=== PATIENT | female | born 2000 | race Caucasian/White ===

== ENCOUNTER 2023-04-21 13:29 | Outpatient (AMB) | payer BC, OTHER, SELFPAY ==
--- NOTE | 2023-04-21 13:30 | MHC.OFFVIS ---
Intake Intake Visit Reasons: facial numbness, MRI Brain 12.13 correlation-Conf Intake Note: Patient presents for facial numbness. Allergies latex Allergy (Unknown, Verified 04/21/23 13:30) Unknown Medication List - Last Reconciled 04/21/23 by TAURUS Cooper ibuprofen 600 mg PO TID levonorgestrel-ethinyl estrad 0.1-20 mg-mcg (Sronyx) 1 tab PO DAILY HPI HPI Comments History of Present Illness Details 22-yr-old female presents for televideo visit via [employer]- for new pt evaluation h/o eye pain, headache, abnormal brain MRI, fatigue. Pt accompanied by her mother. PMH includes: exercise induced asthma, suspected ADHD, Concussion in July 2014 w/ residual migraine like headaches. Symptomatic EBV x's 2 months- dx in Oct 2014. Had an episode in Right hip where she had pain/limited ROM- in highschool. Pt reports she was in her usual good state of health, when in Oct 2022, Pt reports that she started having left adventist numbness. She initialy noticed while applying make-up. The numbness moved inch by inch down her face until the whole left side ( left eyebrow down to the left jaw and midline to left tongue/left gums) of her face was numb and tingling. At that time, there visible no facial weakness, diplopia. In the enxt few weeks, she developed eye pain w/ eye movement, states she would have to move her whole head to look at something.. Then she started having swollen and painful glands in bilateral neck and jaw, but very painful in the left axilla. By Nov 2022, she started also having severe headaches, occipital-cervical pain, fatigue, activity intolerance, muscle fatigue. Also abd bloating. At this point, she went to [facility] ER. CT soft tissue/neck showed minimal asymmetry and hyperemia of the left lingual tonsils which could represent tonsillitis . CBC/CMP and Lyme- WNL. She was tx'd w/ decadron, toradol, and zofran. The left lower facial numbness and tingling resolved within 24 hours of receiving the steroids- she states she could feel the numbness regressing in the opposite pattern that it had progressed. Brain MRI w/wo, 12/14/22 at [facility], showed nonspecific foci of increased T2 in epic and now a IR signal in the subcortical and deep white matter of bilateral cerebral hemispheres, but otherwise unremarkable. Patient states, that lab work-up was concerning for autoimmune disease. However, I do not have these results today. She has since seen [facility]- they thought her inflammatory system was imbalanced. Was advised to avoid gluten, dairy, sugar, which she has been doing for 5 weeks. She is feeling somewhat better. However, she continues to experience: Intermittent eye pain x's 2-3 days. Headache- bifrontal, supraorbital, retroorbital pain. This is exacerbated by certain EOM- looking down to the left. Pulsating pain. A/w photophonia, phonophobia (generally phonophobic), nausea, visible muscle fasciculations in calfs/legs, fatigue, activity intolerance. No dizziness, red eyes, watery eyes, runny nose, facial droop. In the last week- had 1 3day attack. Faigue- but less than before. Endorses mild motion sickness, heat intolerance- always. prone to sweating a lot. anxiety. involuntary smile- jaw feels clenched/tired- has done her entire life. Her feet easily fall asleep- especially quickly after crossing her legs. Denies vision changes. Denies h/o colic, usual headaches/migraine. Family hx: Mother- un-labeled autoimmune d/o (doing work-up for ? RA vs fibromyalgia), motion sickness, Brother- motion sickness. Paternal 1st aunt- lupus. [facility] Medical History (Updated 04/24/23 @ 17:05 by TAURUS Cooper) History of Marina-Schilling virus infection Family History (Updated 04/21/23 @ 13:33 by LINDA Mejias) Mother Hyperlipidemia Auto immune neutropenia Social History (Updated 04/21/23 @ 13:32 by LINDA Mejias) Alcohol intake: never Patient Tobacco Use Status: Never used Tobacco Use of substances other than those prescribed or required for medical reasons: Yes Substance Use Type: Marijuana Physical Exam Const General: cooperative, no acute distress and well developed Orientation/consciousness: patient oriented x3 Resp Effort & Inspection: normal respiratory effort and able to speak in complete sentences Neuro General: patient oriented x3 Cognition (Neuro): normal cognition Psych Appearance: grossly normal Mental Status: mental status grossly normal Affect: normal affect Attitude: cooperative Thought process: Normal thought process present Results Reviewed Results Reviewed: 11/21/22, CT Soft Tissue Neck W/ Contrast CT Soft Tissue Neck W/ Contrast INDICATION/CLINICAL QUESTION: Hx of Present Illness: facial numbness x 1 week, neck pain, jaw pain., L axillia and L arm pain- seen at [place] last week and symptoms getting worse. Vomiting started today at 4 am and subjective fever; Reason: Abscess Inflammation; Clinical Question(s): Abscess; Order Comment: / Abscess. TECHNIQUE: Spiral CT neck with IV contrast formatted in 3 planes. 100 cc of Omnipaque 300 was administered intravenously. Weight-based protocol using automatic tube modulation was used to optimize exposure parameters. CTDIvol Body: 8.30 mGy, DLP Body: 260 mGy*cm. COMPARISON: None FINDINGS: Radar Air Traffic Controller View Findings, Lines and Tubes: None. Intracranial structures: Visualized portions are unremarkable. Orbits: Visualized portions are unremarkable. Paranasal sinuses and mastoids: Visualized portions are clear. Mucosal surfaces: Minimal prominence of the left lingual tonsils with some hyperemia (image 28). Superficial and deep neck spaces: No mass, fluid collection, or inflammatory change. Cervical lymph nodes: Normal in size and morphology. Salivary glands: The parotid glands and submandibular glands are normal. Thyroid gland: Normal CT appearance Vascular structures: Unremarkable. Upper chest: The upper lungs are clear. The upper mediastinum is unremarkable. Bones and teeth: No acute abnormalities. IMPRESSION: No evidence of abscess. There is minimal asymmetry and hyperemia of the left lingual tonsils which could represent tonsillitis Assessment & Plan Assessment & Plan (1) Headache: Code(s): R51.9 - Headache, unspecified (2) Eye pain: Code(s): H57.10 - Ocular pain, unspecified eye (3) White matter abnormality on MRI of brain: Code(s): R90.82 - White matter disease, unspecified (4) Numbness and tingling of left side of face: Comment: Left V2-V3 numbness and tingling (from Oct -Nov 2022) resolved after decadron tx Code(s): R20.0 - Anesthesia of skin; R20.2 - Paresthesia of skin (5) Fatigue: Code(s): R53.83 - Other fatigue Plan Patient advised to undergo a follow-up brain MRI w/ orbits with and without contrast to assess status of inter cerebral white matter changes. Check labs for common etiologies of eye pain, headaches, fatigue. Patient advised to undergo visual evoked potential. Trial Sumatriptan 100mg tab, 1/2 - 1 tab (50-100mg) at onset of headache, may repeat in 2 hours. Max of 2 tabs (200mg) per 24 hours. May adjunct with OTC Tylenol 650mg q 4 hours, Ibuprofen 600mg q 6 hours, or Naproxen 440mg q 12 hrs prn. Case discussed with Dr. Hernandez. Follow-up in 2 months or sooner as needed. Orders: Orders Complete Blood Count Auto Diff 04/21/23 H57.10 - Ocular pain, unspecified eye, R20.0 - Anesthesia of skin, R20.2 - Paresthesia of skin, R51.9 - Headache, unspecified, R90.82 - White matter disease, unspecified Comprehensive Met. Panel 04/21/23 H57.10 - Ocular pain, unspecified eye, R20.0 - Anesthesia of skin, R20.2 - Paresthesia of skin, R51.9 - Headache, unspecified, R90.82 - White matter disease, unspecified [place] Reflex Titer and Pattern 04/21/23 H57.10 - Ocular pain, unspecified eye, R20.0 - Anesthesia of skin, R20.2 - Paresthesia of skin, R51.9 - Headache, unspecified, R90.82 - White matter disease, unspecified Vitamin B12 and Folate 04/21/23 H57.10 - Ocular pain, unspecified eye, R20.0 - Anesthesia of skin, R20.2 - Paresthesia of skin, R51.9 - Headache, unspecified, R90.82 - White matter disease, unspecified Hemoglobin A1c 04/21/23 H57.10 - Ocular pain, unspecified eye, R20.0 - Anesthesia of skin, R20.2 - Paresthesia of skin, R51.9 - Headache, unspecified, R90.82 - White matter disease, unspecified CRP High Sensitivity 04/21/23 H57.10 - Ocular pain, unspecified eye, R20.0 - Anesthesia of skin, R20.2 - Paresthesia of skin, R51.9 - Headache, unspecified, R90.82 - White matter disease, unspecified Lyme IgG/IgM w/reflex to WB 04/21/23 H57.10 - Ocular pain, unspecified eye, R20.0 - Anesthesia of skin, R20.2 - Paresthesia of skin, R51.9 - Headache, unspecified, R90.82 - White matter disease, unspecified EEG electroencephalogram Today H57.10 - Ocular pain, unspecified eye, R20.0 - Anesthesia of skin, R20.2 - Paresthesia of skin, R51.9 - Headache, unspecified, R90.82 - White matter disease, unspecified Rheumatoid Factor 04/21/23 H57.10 - Ocular pain, unspecified eye, R20.0 - Anesthesia of skin, R20.2 - Paresthesia of skin, R51.9 - Headache, unspecified, R90.82 - White matter disease, unspecified TSH reflex Free T4 04/21/23 H57.10 - Ocular pain, unspecified eye, R20.0 - Anesthesia of skin, R20.2 - Paresthesia of skin, R51.9 - Headache, unspecified, R90.82 - White matter disease, unspecified Erythrocyte Sedimentation Rate 04/21/23 H57.10 - Ocular pain, unspecified eye, R20.0 - Anesthesia of skin, R20.2 - Paresthesia of skin, R51.9 - Headache, unspecified, R90.82 - White matter disease, unspecified [place] [facility] [place] H57.10 - Ocular pain, unspecified eye, R20.0 - Anesthesia of skin, R20.2 - Paresthesia of skin, R51.9 - Headache, unspecified, R90.82 - White matter disease, unspecified Vitamin D 25-OH (D2 and D3) 04/21/23 R20.0 - Anesthesia of skin, R20.2 - Paresthesia of skin, R51.9 - Headache, unspecified, R53.83 - Other fatigue MR head/brain wo/w con Today H57.10 - Ocular pain, unspecified eye, R51.9 - Headache, unspecified, R90.82 - White matter disease, unspecified Medications: New sumatriptan succinate (0.5 - 1 x 100 mg) 50 - 100 mg orally at onset of headache, may repeat in 2 hrs PRN; max 2 tabs per day or 4 tabs/week (may take with Ibuprofen) 30 days 12 tabs 6RF migraine headache Telehealth Telehealth Location of provider rendering services: practice address Location of patient: address on file Patient Identification confirmed using: Name, : Yes Telehealth method: video Patient verbally consented to treatment: Yes Patient verbally consented to billing insurance company: Yes Patient informed of any privacy concerns related to visit: Yes Minutes spent on Phone/Video with Pt.: 45 Coding Level of Care Code Tele [facility] Pt Level 4 (99566) Diagnoses Headache R51.9 Eye pain H57.10 White matter abnormality on MRI of brain R90.82 Numbness and tingling of left side of face R20.0; R20.2 Fatigue R53.83
== END 2023-04-21 14:30 | disposition home or self-care (01) ==
LOC: HO.HSMS 13:29
PROVIDERS: PCP Family Medicine; Referring Provider Physician Assistant; Visit Provider Nurse Practitioner Family
DX: R51.9 Headache, unspecified (principal); H57.10 Ocular pain, unspecified eye; R90.82 White matter disease, unspecified; R20.0 Anesthesia of skin; R20.2 Paresthesia of skin; R53.83 Other fatigue
CPT/HCPCS: 99204

== ENCOUNTER → 2023-04-21 13:29 | Outpatient (BNVA) | payer BC, OTHER, SELFPAY | PROVIDERS: PCP Family Medicine; Referring Provider Physician Assistant; Visit Provider Nurse Practitioner Family ==

== ENCOUNTER 2023-04-28 10:41 | Outpatient (REF) | payer BC, OTHER, SELFPAY ==
[2023-04-28 13:24] LABS: MANUAL DIFF FLAG NO
[2023-04-28 13:32] LABS: Basophils Percent Auto 0.5 % (0-2); Eosinophils Absolute Auto 0.1 X10*3/uL (0.0-0.4); Eosinophils Percent Auto 1.3 % (0-4); Hematocrit 40.4 % (37.0-47.0); Hemoglobin 13.5 g/dl (12.0-16.0); Imm Gran Abs Auto 0.01 X10*3/uL (0.00-0.03); Imm Gran Pct Auto 0.1 % (0.0-0.4); Lymphocytes Absolute Auto 2.6 X10*3/uL (1.2-4.9); Mean Corpuscular HGB Conc 33.4 g/dl (31.0-35.0); Mean Corpuscular Hemoglobin 29.3 pg (27.0-33.0); Mean Corpuscular Volume 87.6 fL (80.0-98.0); Mean Platelet Volume 9.9 fL (9.4-12.3); Monocytes Absolute Auto 0.4 X10*3/uL (0.1-1.2); Monocytes Percent Auto 5.1 % (2-11); Neutrophils Absolute Auto 4.5 x10*3/uL (2.0-8.3); Platelet Count 268 X10*3/uL (160-400); Red Blood Count 4.61 X10*6/uL (4.20-5.50); Red Cell Distribution Width 11.8 % (11.0-16.0); White Blood Count 7.7 X10*3/uL (4.8-10.8)
[2023-04-28 13:52] LABS: Estimated Average Glucose 97 mg/dL; Rheumatoid Factor < 13.0 IU/mL (<15.0)
[2023-04-28 14:06] LABS: Alanine Aminotransferase 16 U/L (0-31); Albumin Level 4.3 g/dL (3.5-5.0); Alkaline Phosphatase 40 U/L (39-117); Anion Gap 9 (12-20); Aspartate Amino Transferase 18 U/L (5-31); Bilirubin Total 0.5 mg/dL (0.0-1.0); Blood Urea Nitrogen 12 mg/dL (9-16); Calcium 9.2 mg/dL (8.4-10.2); Carbon Dioxide 25 mmol/L (22-29); Chloride 107 mmol/L (96-108); Estimated Glomerular Filt Rate > 60; Glucose Random 116 mg/dL (60-115); Potassium 3.9 mmol/L (3.3-5.1); Sodium 137 mmol/L (135-145); Total Protein 7.5 g/dL (6.5-8.0)
[2023-04-28 14:11] LABS: Erythrocyte Sedimentation Rate 5 MM/HR (0-20)
[2023-04-28 14:16] LABS: Folate 6.7 ng/mL (> or = 4.0); Vitamin B12 849 pg/mL (200-900)
[2023-04-28 14:22] LABS: TSH reflex Free T4 2.93 uIU/mL (0.32-4.0)
[2023-04-29 15:59] LABS: CRP High Sensitivity 0.3 mg/L
[2023-04-29 18:09] LABS: Lyme Abs Screen <0.90 index
[2023-05-03 10:08] LABS: Angiotensin Converting Enzyme 19.2 U/L (9-67)
[2023-05-03 15:24] LABS: ANA Titer 2 1:40 titer; Anti Nuclear Antibody Pattern Nuclear, Homogeneous; Anti Nuclear Antibody Screen POSITIVE (NEGATIVE)
[2023-05-03 15:47] LABS: Vitamin D 25-OH, D2 <4 ng/mL; Vitamin D 25-OH, D3 38 ng/mL; Vitamin D 25-OH, Total 38 ng/mL (30-100)
== END 2023-04-28 10:42 | disposition home or self-care (01) ==
LOC: HO.10HDL 10:41
PROVIDERS: Visit Provider Nurse Practitioner Family
DX: R51.9 Headache, unspecified (principal); H57.10 Ocular pain, unspecified eye; R90.82 White matter disease, unspecified; R20.0 Anesthesia of skin; R20.2 Paresthesia of skin; R53.83 Other fatigue
CPT/HCPCS: 36415; 80053; 82164; 82306; 82607; 82746; 83036; 84443; 85025; 85652; 86038; 86039; 86141; 86431; 86617; 86618

== ENCOUNTER 2023-05-27 15:14 | Outpatient (REF) | payer BC, OTHER, SELFPAY ==
--- NOTE | ~2023-05-27 | MR_ITS ---
EXAMINATION: MR BRAIN WITHOUT CONTRAST MR ORBITS WITHOUT AND WITH CONTRAST CLINICAL INFORMATION: Ocular pain. White matter changes. COMPARISON: Brain MRI from 12/13/2022. TECHNIQUE: MRI of the brain without intravenous contrast. MRI of the orbits was obtained using routine sequences without and following the administration of 7 mL of Gadavist intravenous contrast. FINDINGS: No focal restricted diffusion is demonstrated to suggest acute or subacute cerebral ischemia. No evidence of acute or chronic hemorrhagic products on heme-sensitive imaging. Redemonstrated scattered subcortical, deep white matter, periventricular, and cerebellar T2 FLAIR hyperintensities. There appear to be a few small regions of T2 FLAIR hyperintensity that are new compared to exam from 2022 and the left periatrial white matter, and anterior right frontal lobe. The ventricles are normal in morphology and size. No abnormal mass effect. No midline shift. Normal positioning of the cerebellar tonsils. No demonstrated abnormalities of the orbits. No significant preseptal or retrobulbar edema. Normal appearance of the globes. Normal symmetric appearance of the extraocular musculature. No abnormalities of the intraconal or extraconal adipose tissue. Normal appearance of the optic nerves and their sheaths. Normal appearance of the lacrimal glands. No orbital fluid collections. No abnormalities of the orbital apices. Normal appearance of the optic chiasm. Normal appearance of the pituitary gland and infundibulum. Normal appearance of the cavernous sinuses without abnormal filling defects. No demonstrated abnormalities of the intracranial internal carotid or anterior cerebral arteries. Normal arterial and venous vascular flow voids are present. No abnormal contrast enhancement of the orbits. The visualized premaxillary, retromaxillary, pterygopalatine fossa, and temporal fossa adipose tissue is maintained. Normal, homogeneous marrow signal. Mild mucosal thickening of the paranasal sinuses. No signal abnormalities within the mastoids. MR/MR orbits face neck wo/w con IMPRESSION: 1. No acute intracranial abnormalities. 2. Redemonstrated nonspecific white matter changes. There appear to be a few small regions of T2 FLAIR hyperintensity in the left periatrial white matter and anterior right frontal lobe are new compared to exam from 2022. No demonstrated associated restricted diffusion in these distributions to suggest active insult. Overall, these changes are nonspecific; however, the distribution may be seen in the setting of inflammatory or demyelinating processes. 3. No MRI abnormalities of the orbits to explain the patient's symptoms. No abnormal enhancement of the orbits.
[2023-05-27] MEDS: gadobutroL 7.5 ML VIAL IVPUSH (16:34)
== END 2023-05-27 15:15 | disposition home or self-care (01) ==
LOC: HO.MRI 15:14
PROVIDERS: PCP Student in an Organized Health Care Education/Training Program; Visit Provider Nurse Practitioner Family
DX: H57.10 Ocular pain, unspecified eye (principal); R90.82 White matter disease, unspecified; R20.0 Anesthesia of skin; R20.2 Paresthesia of skin; R76.8 Other specified abnormal immunological findings in serum; R51.9 Headache, unspecified; Z86.19 Personal history of other infectious and parasitic diseases
CPT/HCPCS: 70543; 70553; A9585

== ENCOUNTER 2023-06-08 15:01 | Outpatient (REF) | payer BC, OTHER, SELFPAY ==
[2023-06-08 16:26] LABS: MANUAL DIFF FLAG NO
[2023-06-08 16:54] LABS: Basophils Percent Auto 0.4 % (0-2); Eosinophils Percent Auto 0.4 % (0-4); Hematocrit 39.8 % (37.0-47.0); Hemoglobin 13.3 g/dl (12.0-16.0); Imm Gran Abs Auto 0.01 X10*3/uL (0.00-0.03); Imm Gran Pct Auto 0.1 % (0.0-0.4); Lymphocytes Absolute Auto 2.4 X10*3/uL (1.2-4.9); Lymphocytes Percent Auto 35.3 % (20-40); Mean Corpuscular HGB Conc 33.4 g/dl (31.0-35.0); Mean Corpuscular Hemoglobin 29.6 pg (27.0-33.0); Mean Corpuscular Volume 88.4 fL (80.0-98.0); Mean Platelet Volume 9.9 fL (9.4-12.3); Monocytes Absolute Auto 0.4 X10*3/uL (0.1-1.2); Monocytes Percent Auto 5.8 % (2-11); Neutrophils Absolute Auto 3.9 x10*3/uL (2.0-8.3); Platelet Count 302 X10*3/uL (160-400); White Blood Count 6.7 X10*3/uL (4.8-10.8)
[2023-06-08 17:20] LABS: Alanine Aminotransferase 13 U/L (0-31); Albumin Level 4.5 g/dL (3.5-5.0); Alkaline Phosphatase 41 U/L (39-117); Anion Gap 10 (12-20); Aspartate Amino Transferase 16 U/L (5-31); Bilirubin Total 0.4 mg/dL (0.0-1.0); Blood Urea Nitrogen 13 mg/dL (9-16); C Reactive Protein < 0.10 mg/dL (< or = 0.50); Calcium 9.6 mg/dL (8.4-10.2); Carbon Dioxide 28 mmol/L (22-29); Chloride 106 mmol/L (96-108); Estimated Glomerular Filt Rate > 60; Glucose Random 95 mg/dL (60-115); Potassium 3.8 mmol/L (3.3-5.1); Sodium 140 mmol/L (135-145)
[2023-06-08 17:42] LABS: Erythrocyte Sedimentation Rate 7 MM/HR (0-20)
[2023-06-09 11:23] LABS: Thyroglobulin Antibodies <1 IU/mL (< or = 1); Thyroid Peroxidase Antibodies 3 IU/mL (<9)
[2023-06-09 14:38] LABS: Complement C3 114 mg/dL (83-193)
[2023-06-09 20:48] LABS: Anti DNA DS Antibody <1 IU/mL; Anti-Centromere B Antibodies <1.0 NEG AI (<1.0 NEG); Antibody to SS-A Antigen <1.0 NEG AI (<1.0 NEG); Antibody to SS-B Antigen <1.0 NEG AI (<1.0 NEG); Myeloperoxidase Antibody <1.0 AI; Proteinase 3 PR3 Antibodies <1.0 AI; SM/Ribonucleoprotein Ab <1.0 NEG AI (<1.0 NEG); Scleroderma 70 Antibody <1.0 NEG AI (<1.0 NEG); Smith Protein <1.0 NEG AI (<1.0 NEG)
[2023-06-09 22:09] LABS: Prot Elec - Albumin 4.5 g/dL (3.8-4.8); Prot Elec - Alpha1 0.3 g/dL (0.2-0.3); Prot Elec - Alpha2 0.7 g/dL (0.5-0.9); Prot Elec - Beta 1 0.6 g/dL (0.4-0.6); Prot Elec - Beta 2 0.5 g/dL (0.2-0.5); Prot Elec - Gamma 1.3 g/dL (0.8-1.7); Prot Elec - Total Protein 7.8 g/dL (6.1-8.1)
[2023-06-10 14:43] LABS: Mitochondrial Antibodies NEGATIVE (NEGATIVE)
[2023-06-12 00:05] LABS: HLA B27 Negative (Negative)
[2023-06-13 04:58] LABS: Angiotensin Converting Enzyme 9 U/L (9-67)
[2023-06-13 12:48] LABS: Smooth Muscle Antibody <20 U (<20)
[2023-06-13 13:02] LABS: IgA 285 mg/dL (47-310); IgG 1340 mg/dL (600-1640); IgM 202 mg/dL (50-300)
[2023-06-14 05:44] LABS: Aldolase 3.5 U/L (<=8.1)
== END 2023-06-08 15:02 | disposition home or self-care (01) ==
LOC: HO.LAB 15:01
PROVIDERS: PCP Family Medicine; Referring Provider Nurse Practitioner Family; Visit Provider Nurse Practitioner Family
DX: R76.8 Other specified abnormal immunological findings in serum (principal); R53.82 Chronic fatigue, unspecified
CPT/HCPCS: 36415; 80053; 82085; 82164; 82550; 82784; 84165; 85025; 85652; 86015; 86021; 86140; 86160; 86225; 86235; 86334; 86376; 86381; 86800; 86812

== ENCOUNTER 2023-06-08 15:01 | Outpatient (AMB) | payer BC, OTHER, SELFPAY ==
--- NOTE | 2023-06-08 15:02 | A.OFFVIS_ITS ---
Vital Signs 06/08/23 15:16 Height 5 ft 4 in Weight 146 lb 2.664 oz BMI 25.1 BP 106/82 Blood Pressure Location Rt brachial Position Sitting Pulse 86 Pulse Source Pulse Oximeter Pulse Oximetry (%) 97 Oxygen Delivery Method Room Air Intake Visit Reasons: abnormal lab Intake Note: New patient, internally referred, presents to office today for consult on pericarditis w/ hx +BRENTON. Network Project Manager Required: No Accompanied by: Mother Allergies latex Allergy (Unknown, Verified 06/08/23 15:03) Unknown HPI Comments Details: Ms. Mcgowan 23-year-old female presents for evaluation of +BRENTON and left-sided facial numbness. She is here on referral by her neurologist. -- per patient left side facial numbness, progressed to where she could not move left arm above 90 degrees; swollen lymph nodes and vomitimg - improved with IV steroids and Abx. --before facial episode - had severe cystic acne in 2020- residual scarring. (thought it was related to COVID vaccine) then noticeable hair loss, now resolved and improving - then fatigue in the following months; --increased bloating - saw functional medicine who withheld sugar, gluten dairy - sugar was the culprit - withheld and had improved from fatigue, now back to exercising. --now has migraines, but did not before this experience. --Had mono in high school. --upcoming appointment with ramp supervisor - secondary to the result visionary and sensory test abnormal per Neuro. --denies dry eyes, dry mouth, sun sensitivity, serositis, rashes, mouth sores, blood in urine or stool. 04/21/2023 Neuro Visit: 22-yr-old female presents for televideo visit via [employer] (formerly [employer])- for new pt evaluation h/o eye pain, headache, abnormal brain MRI, fatigue. Pt accompanied by her mother. PMH includes: exercise induced asthma, suspected ADHD, Concussion in July 2014 w/ residual migraine like headaches. Symptomatic EBV x's 2 months- dx in Oct 2014. Had an episode in Right hip where she had pain/limited ROM- in highschool. Pt reports she was in her usual good state of health, when in Oct 2022, Pt reports that she started having left yarsanism numbness. She initialy noticed while applying make-up. The numbness moved inch by inch down her face until the whole left side ( left eyebrow down to the left jaw and midline to left tongue/left gums) of her face was numb and tingling. At that time, there visible no facial weakness, diplopia. In the enxt few weeks, she developed eye pain w/ eye movement, states she would have to move her whole head to look at something.. Then she started having swollen and painful glands in bilateral neck and jaw, but very painful in the left axilla. By Nov 2022, she started also having severe headaches, occipital-cervical pain, fatigue, activity intolerance, muscle fatigue. Also abd bloating. At this point, she went to [facility] ER. CT soft tissue/neck showed minimal asymmetry and hyperemia of the left lingual tonsils which could represent tonsillitis . CBC/CMP and Lyme- WNL. She was tx'd w/ decadron, toradol, and zofran. The left lower facial numbness and tingling resolved within 24 hours of receiving the steroids- she states she could feel the numbness regressing in the opposite pattern that it had progressed. Brain MRI w/wo, 12/14/22 at [facility], showed nonspecific foci of increased T2 in epic and now a IR signal in the subcortical and deep white matter of bilateral cerebral hemispheres, but otherwise unremarkable. Patient states, that lab work-up was concerning for autoimmune disease. However, I do not have these results today. She has since seen [facility] medicine- they thought her inflammatory system was imbalanced. Was advised to avoid gluten, dairy, sugar, which she has been doing for 5 weeks. She is feeling somewhat better. However, she continues to experience: Intermittent eye pain x's 2-3 days. Headache- bifrontal, supraorbital, retroorbital pain. This is exacerbated by certain EOM- looking down to the left. Pulsating pain. A/w photophonia, phonophobia (generally phonophobic), nausea, visible muscle fasciculations in calfs/legs, fatigue, activity intolerance. No dizziness, red eyes, watery eyes, runny nose, facial droop. In the last week- had 1 3day attack. Faigue- but less than before. Endorses mild motion sickness, heat intolerance- always. prone to sweating a lot. anxiety. involuntary smile- jaw feels clenched/tired- has done her entire life. Her feet easily fall asleep- especially quickly after crossing her legs. Denies vision changes. Denies h/o colic, usual headaches/migraine. Family hx: Mother- un-labeled autoimmune d/o (doing work-up for ? RA vs fibromyalgia), motion sickness, Brother- motion sickness. Paternal 1st aunt- lupus. [facility] Medical History (Updated 07/03/23 @ 22:14 [facility] History of Marina-Schilling virus infection Family History (Updated 06/08/23 @ 15:19 by LINDA Posada) Mother Hyperlipidemia Auto immune neutropenia Arthritis Family/Other Lupus Social History (Updated 06/08/23 @ 15:19 by LINDA Posada) Alcohol intake: current Alcohol intake frequency: holidays/special occasions only Patient Tobacco Use Status: Never used Tobacco Substance Use Type: Marijuana Review of Systems Const All systems reviewed & are unremarkable except as noted in HPI and below Physical Exam Vital Signs: Last Vital Signs Pulse 86 06/08/23 15:16 BP 106/82 06/08/23 15:16 Pulse Ox 97 06/08/23 15:16 Oxygen Delivery Method Room Air 06/08/23 15:16 BMI result Body Mass Index 25.1 Vital signs reviewed. Constitutional: Non-toxic appearing. No acute distress. Well-developed and well-nourished. HEENT: Normocephalic and atraumatic. External auditory canals without erythema or edema bilaterally. Dry mucous membranes. No pharyngeal erythema or exudates. Skin: Warm and dry. No rashes or lesions noted. Neck: Full and painless range of motion. No cervical lymphadenopathy. Cardio: Regular rate and rhythm. No murmurs, gallops, or rubs. No lower extremity edema. No JVD. Pulmonary: No respiratory distress. No accessory muscle usage. Gastrointestinal: Soft, nontender, and nondistended in all 4 quadrants. Normoactive bowel sounds in all 4 quadrants. Genitourinary: No CVA tenderness. Musculoskeletal: Normal range of motion in joints throughout the body. No deformity or other signs of injury. Neuro: Alert and oriented x4. Cranial nerves 2-12 grossly intact. No focal deficits appreciated. Assessment & Plan Assessment & Plan (1) Fatigue: Code(s): R53.83 - Other fatigue Category: Medical Qualifiers: Fatigue type: chronic, unspecified Qualified Code(s): R53.82 - Chronic fatigue, unspecified (2) BRENTON positive: Code(s): R76.8 - Other specified abnormal immunological findings in serum Category: Medical Plan Ms. Mcgowan 23-year-old female here for evaluation of positive BRENTON (1:320) and facial numbness. The BRENTON is highly positive so we will do a full room panel including JON extraction to assess if any associated antibodies. The patient symptoms can be seen in the context of a clinical presentation for lupus or mixed connective tissue disease. Most of her symptoms have resolved and she is feeling improved. Her hair is no longer shedding and has grown back: no more feeling of malaise. She does however continue to suffer from fatigue. I will do a rheumatology panel to evaluate further. The patient states she is feeling better since the treatment with prednisone and abx and continues to improve. Given the lupus like symptoms and +BRENTON, we will continue to monitor and patient knows to call for sooner appointment if needed. 35 minutes was spent reviewing history, evaluating patient and documenting f/u 6 months Orders: Orders ANCA Vasculitides 06/08/23 R76.8 - Other specified abnormal immunological findings in serum, R53.83 - Other fatigue Anti DNA DS Antibody 06/08/23 R76.8 - Other specified abnormal immunological findings in serum, R53.83 - Other fatigue Anti Extractable Nuclear Ag 06/08/23 R76.8 - Other specified abnormal immunological findings in serum, R53.83 - Other fatigue Angiotensin Converting Enzyme 06/08/23 R76.8 - Other specified abnormal immunological findings in serum, R53.83 - Other fatigue Complement C3 06/08/23 R76.8 - Other specified abnormal immunological findings in serum, R53.83 - Other fatigue Complement C4 06/08/23 R76.8 - Other specified abnormal immunological findings in serum, R53.83 - Other fatigue C Reactive Protein 06/08/23 R76.8 - Other specified abnormal immunological findings in serum, R53.83 - Other fatigue Creatine Kinase Total 06/08/23 R76.8 - Other specified abnormal immunological findings in serum, R53.83 - Other fatigue Immunofixation Pnl, Serum 06/08/23 R76.8 - Other specified abnormal immunological findings in serum, R53.83 - Other fatigue Scleroderma 70 Antibody 06/08/23 R76.8 - Other specified abnormal immunological findings in serum, R53.83 - Other fatigue Aldolase 06/08/23 R76.8 - Other specified abnormal immunological findings in serum, R53.83 - Other fatigue Smooth Muscle Antibody 06/08/23 R76.8 - Other specified abnormal immunological findings in serum, R53.83 - Other fatigue Anti-Centromere B Antibodies 06/08/23 R76.8 - Other specified abnormal immunological findings in serum, R53.83 - Other fatigue Complete Blood Count Auto Diff 06/08/23 R76.8 - Other specified abnormal immunological findings in serum, R53.83 - Other fatigue Comprehensive Met. Panel 06/08/23 R76.8 - Other specified abnormal immunological findings in serum, R53.83 - Other fatigue Erythrocyte Sedimentation Rate 06/08/23 R76.8 - Other specified abnormal immunological findings in serum, R53.83 - Other fatigue Immunoglobulins,IgG IgA IgM 06/08/23 R76.8 - Other specified abnormal immunological findings in serum, R53.83 - Other fatigue Protein Electrophoresis, Serum 06/08/23 R76.8 - Other specified abnormal immunological findings in serum, R53.83 - Other fatigue Sjogren's Antibodies 06/08/23 R76.8 - Other specified abnormal immunological findings in serum, R53.83 - Other fatigue UA w Microscopic 06/10/23 R76.8 - Other specified abnormal immunological fi ndings in serum, R53.83 - Other fatigue HLA B27 06/08/23 R76.8 - Other specified abnormal immunological findings in serum, R53.83 - Other fatigue Mitochondrial Antibody 06/08/23 R76.8 - Other specified abnormal immunological findings in serum, R53.83 - Other fatigue Thyroid Peroxidase Antibodies 06/08/23 R76.8 - Other specified abnormal immunological findings in serum, R53.83 - Other fatigue Thyroglobulin Antibodies 06/08/23 R76.8 - Other specified abnormal immunological findings in serum, R53.83 - Other fatigue Coding Level of Care Code New Pt Level 4 (14800) Diagnoses Chronic fatigue R53.82 Fatigue type: chronic, unspecified BRENTON positive R76.8
[2023-06-08 15:16] VITALS: BP 106/82; PULSE 86; O2SAT 97; BMI 25.1
== END 2023-06-08 15:58 | disposition home or self-care (01) ==
PROVIDERS: PCP Family Medicine; Referring Provider Nurse Practitioner Family; Visit Provider Nurse Practitioner Family
DX: R53.82 Chronic fatigue, unspecified (principal); R76.8 Other specified abnormal immunological findings in serum
CPT/HCPCS: 99204

== ENCOUNTER 2023-06-10 11:55 | Outpatient (REF) | payer BC, OTHER, SELFPAY ==
[2023-06-10 12:48] LABS: Appearance Urine Cloudy; Color Urine Yellow; Glucose Urine UA Negative (Negative); Leukocyte Esterase Urine Negative (Negative); Nitrite Urine Negative (Negative); Specific Gravity - Urine >= 1.030 (1.005-1.025); Urine Blood Negative (Negative); Urine Ketones Negative (Negative); Urine Protein Negative (Neg-Trace)
[2023-06-10 13:04] LABS: Bacteria Urine Trace (None Seen); Hyaline Casts Urine 0-2 /LPF (0-2); RBC Urine 0-2 /HPF (0-2); Squamous Epithelial Cell Urine >20 /HPF (0-2); WBC Urine 0-5 /HPF (0-5)
== END 2023-06-10 11:56 | disposition home or self-care (01) ==
LOC: HO.LAB 11:55
PROVIDERS: Visit Provider Nurse Practitioner Family
DX: R76.8 Other specified abnormal immunological findings in serum (principal); R53.83 Other fatigue
CPT/HCPCS: 81001

== ENCOUNTER 2023-06-21 08:04 | Outpatient (REF) | payer BC, OTHER, SELFPAY ==
--- NOTE | 2023-06-21 08:08 | EEG_ITS ---
FINDINGS: Waking background activity consists of a well-defined moderate voltage 10 hertz posterior alpha frequency that is seen symmetrically and attenuates well with eye opening while low voltage fast frequencies predominate anteriorly. Photic stimulation is without activation. Hyperventilation was omitted. No focal, lateralizing or paroxysmal discharges are seen. IMPRESSION: This waking EEG is within normal limits MD JAKE Quijano/TATA / [id number]
== END 2023-06-21 08:05 | disposition home or self-care (01) ==
LOC: HO.NEURO 08:04
PROVIDERS: PCP Family Medicine; Visit Provider Nurse Practitioner Family
DX: R55 Syncope and collapse (principal)
CPT/HCPCS: 95816

== ENCOUNTER 2023-07-05 08:54 | Outpatient (AMB) | payer BC, OTHER, SELFPAY ==
--- NOTE | 2023-07-05 17:23 | A.OFFVIS_ITS ---
Intake Visit Reasons: eye symptoms Allergies latex Allergy (Unknown, Verified 06/08/23 15:03) Unknown Medication List - Last Reconciled 07/05/23 by TAURUS Cooper ibuprofen 600 mg PO TID levonorgestrel-ethinyl estrad 0.1-20 mg-mcg (Sronyx) 1 tab PO DAILY propranolol 10 mg PO BID 30 days sumatriptan succinate 50 - 100 mg orally at onset of headache, may repeat in 2 hrs PRN; max 2 tabs per day or 4 tabs/week (may take with Ibuprofen) 30 days HPI Comments Details: 23-yr-old female presents for f/u visit, accompanied by her mother Pt had called the office the other day d/t worsening headache, not responsive to her usual medications and sumatriptan was not tolerated. Headache- bifrontal, supraorbital, retroorbital pain a/w photophonia, phonophobia (generally phonophobic), nausea, visible muscle fasciculations in calfs/legs, fatigue, activity intolerance. Pt also has been having increased anxiety. She is working w/ a therapist. She notes have neck tightness and low back pain. Today, pt's mother recalls that in high school, pt had an acute onset of LLE numbness where pt could not walk, which self-resolved over a few weeks. She continues to have left eye pain on eye movement. Recent eye exam revealed bilateral optic disc pallor- and pt has been referred to neuro-ophthalmology. Visual evoked potential- showed possible very mild conduction defect in bilateral visual pathways of unclear location of caustive lesion. Brain MRI w/wo- showed a few small new, non-enhancing white matter lesions in the left periatrial white matter and anterior right frontal lobe. No orbital lesions observed. Lab results were notable for positive BRENTON. Pt has since had rheumatology consult, f/u lab testing has been WNL. Note pt did have a convulsive syncopal episode following her rheumatology lab testing f/b N/V and fatigue. She has had this happen before w/ blood draws. Pt then had f/u EEG- which was normal. Interval work-up: 06/21/23: EEG IMPRESSION: This waking EEG is within normal limits 05/27/23, MR/MR head/brain wo/w con IMPRESSION: 1. No acute intracranial abnormalities. 2. Redemonstrated nonspecific white matter changes. There appear to be a few small regions of T2 FLAIR hyperintensity in the left periatrial white matter and anterior right frontal lobe are new compared to exam from 2022. No demonstrated associated restricted diffusion in these distributions to suggest active insult. Overall, these changes are nonspecific; however, the distribution may be seen in the setting of inflammatory or demyelinating processes. 3. No MRI abnormalities of the orbits to explain the patient's symptoms. No abnormal enhancement of the orbits. Brain MRI w/wo, 12/14/22 at [facility], showed nonspecific foci of increased T2 hyperintensity signal in the subcortical and deep white matter of bilateral cerebral hemispheres, but otherwise unremarkable. 05/11/23, Visual Evoked Potential INTERPRETATION: ?This pattern-reversal visual evoked response (AVTAR) study is abnormal in terms of the absolute latency to the P100 peak at check size 32 only in that it is beyond three standard deviations from the mean for both eyes, but since the absolute latency to the P100 peak at check sizes 16 and 64 for both eyes is within the normal range, the clinical significance of this finding is unclear. ?However, the possibility that there could be a very mild conduction defect in the visual pathways bilaterally, which because of the binocular nature of the findings would make the lesion location (retina, optic nerve, tracts or radiations) not able to be determined, cannot be totally excluded. ?Clinical correlation is therefore recommended. 04/28/23 10:50 BRENTON Screen POSITIVE A BRENTON Titer 1:320 H BRENTON Titer 2 1:40 H BRENTON Pattern Nuclear, Homogeneous A BRENTON Pattern 2 A [facility] Medical History (Updated 07/05/23 @ 20:51 by TAURUS Cooper) History of Marina-Schilling virus infection Family History (Updated 06/08/23 @ 15:19 by LINDA Posada) Mother Hyperlipidemia Auto immune neutropenia Arthritis Family/Other Lupus Social History (Updated 06/08/23 @ 15:19 by LINDA Posada) Alcohol intake: current Alcohol intake frequency: holidays/special occasions only Patient Tobacco Use Status: Never used Tobacco Substance Use Type: Marijuana Physical Exam Const General: cooperative and no acute distress Orientation/consciousness: patient oriented x3 Resp Effort & Inspection: normal respiratory effort and able to speak in complete sentences Neuro Other: MS 5/5 throughout. Mild tone in left elbow CN II through XII intact, however EOM elicits mild discomfort in left eye. No nystagmus. Negative bilateral Hoang's. Color perception intact General: patient oriented x3 Cognition (Neuro): normal cognition Deep tendon reflexes (DTR's): Right triceps reflex intensity grade: 2+, Left triceps reflex intensity grade: 2+, Rt Biceps (C5, C6): 2+, Left biceps reflex intensity grade: 2+, Right brachioradialis reflex intensity grade: 2+, Left brachioradialis reflex intensity grade: 2+, Right patellar reflex intensity grade: 2+, Left patellar reflex intensity grade: 2+, Right ankle reflex intensity grade: 2+ and Left ankle reflex intensity grade: 3+ Psych Appearance: grossly normal Mental Status: mental status grossly normal Speech and movement: Normal speech and movement present Affect: normal affect Attitude: cooperative Assessment & Plan Assessment & Plan (1) Numbness and tingling of left side of face: Comment: Left V2-V3 numbness and tingling (from Oct -Nov 2022) resolved after decadron tx Code(s): R20.0 - Anesthesia of skin; R20.2 - Paresthesia of skin Category: Medical (2) White matter abnormality on MRI of brain: Code(s): R90.82 - White matter disease, unspecified Category: Medical (3) History of Marina-Schilling virus infection: Code(s): Z86.19 - Personal history of other infectious and parasitic diseases Category: Medical (4) Low back pain: Code(s): M54.50 - Low back pain, unspecified Category: Medical (5) Eye pain: Code(s): H57.10 - Ocular pain, unspecified eye Category: Medical (6) Migraine without aura: Code(s): G43.009 - Migraine without aura, not intractable, without status migrainosus Category: Medical Plan Reviewed interval work-up, although non-specific, abnormal brain MRI w/ progression of intracerebral white matter changes and VEP studies, do raise suspicion for a central inflammatory or demyelinating process. Pt is thus advised to undergo: C-spine and T-spine MRI w/wo- to assess for central etiology. LP- however pt is hesistent to do this prior to undergoing MRI- a she is worried about passing out during LP.- Will hold until MRI report available- if we order LP, can provide pre- LP anxioltyic. Consider Labs- for anti-aquaporin 4 AB- however will hold until after MRI- can do at same time as LP. Check XR l-spine for back pain. For migraine headache: Trial propranolol 10mg bid for migraine and anxiety Trial gepant samples for headache- see below. Trial Naratriptan prn: Previous acute migraine tx trials- Sumatriptan- not tolerated. Samples given: Ubrelvy 50mg tab: 1 tab per box, lot # [id number], exp 08/15 2 boxes (total 2 tabs) Instructions: 1 tab at onset of migraine, may repeat in 2 hrs (max 200mg/day). May take with Ibuprofen, Naproxen, or Tylenol.? Ubrelvy 100mg tab: 1 tab per box, lot # [id number], exp 02/14 2 boxes (total 2 tabs) Instructions: ?-1 tab at onset of migraine, may repeat in 2 hrs (max 200mg/day). May take with Ibuprofen, Naproxen, or Tylenol.? Nurtec ODT 75m tabs per sleeve, lot # [id number], exp 08/15 2 sleeves w/ 2 tabs per sleeve (total 4 tabs). Instructions: 1 tab under tongue daily at onset of migraine. (max 1 tab per day). May take with Ibuprofen, Naproxen, or Tylenol. Medications: New naratriptan take 1/2 - 1 tab at onset of headache; if no relief may repeat 1 tab after at least 4 hrs; max = 2 tabs/24 hrs orally PRN; 30 days 12 tabs 6RF migraine headache Discontinued sumatriptan succinate Discontinued Reason: Doctor's Order (0.5 - 1 x 100 mg) 50 - 100 mg orally at onset of headache, may repeat in 2 hrs PRN; max 2 tabs per day or 4 tabs/week (may take with Ibuprofen) 30 days 12 tabs 6RF migraine headache Coding Level of Care Code Est Pt Level 4 (67468) Diagnoses Numbness and tingling of left side of face R20.0; R20.2 White matter abnormality on MRI of brain R90.82 History of Marina-Schilling virus infection Z86.19 Low back pain M54.50 Eye pain H57.10 Migraine without aura G43.009
== END 2023-07-05 08:54 | disposition home or self-care (01) ==
LOC: HO.HSMS 08:54
PROVIDERS: PCP Family Medicine; Visit Provider Nurse Practitioner Family
DX: R20.0 Anesthesia of skin (principal); R20.2 Paresthesia of skin; R90.82 White matter disease, unspecified; Z86.19 Personal history of other infectious and parasitic diseases; M54.50 Low back pain, unspecified; H57.10 Ocular pain, unspecified eye; G43.009 Migraine without aura, not intractable, without status migrainosus
CPT/HCPCS: 99214

== ENCOUNTER → 2023-07-05 08:54 | Outpatient (BNVA) | payer BC, OTHER, SELFPAY | PROVIDERS: PCP Family Medicine; Visit Provider Nurse Practitioner Family ==

== ENCOUNTER 2023-08-11 08:09 | Outpatient (REF) | payer BC, OTHER, SELFPAY ==
--- NOTE | ~2023-08-11 | MR_ITS ---
EXAMINATION: MR CERVICAL SPINE WITHOUT AND WITH CONTRAST MR THORACIC SPINE WITHOUT AND WITH CONTRAST CLINICAL INFORMATION: White matter disease. COMPARISON: Brain MRI from 05/27/2023. TECHNIQUE: MRI of the cervical and thoracic spine was obtained using routine sequences without and following the administration of 6 mL of Gadavist intravenous contrast. FINDINGS: Cervical Spine: Straightening of the normal cervical lordosis. Mild degenerative anterolisthesis of C2 on C3. Otherwise, normal anatomic alignment. Mild degenerative disc disease at C2-C3 and from C4-C6. Associated mixed Modic type discogenic and plate changes including mild Modic type I discogenic edema from C2-C4. No additional suspicious marrow edema. The vertebral body heights are largely maintained. No demonstrated overt cervical spinal cord signal abnormalities. No abnormal contrast enhancement. Limited evaluation of the soft tissues of the neck without demonstrated abnormalities. The flow voids of the major cervical vessels are maintained. Normal appearance of the cervicomedullary junction and visualized posterior fossa. SPINAL LEVELS: C2-C3: Minimal disc-osteophyte complex. There is no uncovertebral joint arthropathy. There is mild left and no right facet joint arthropathy. There is no neural foraminal stenosis. There is no spinal canal stenosis. C3-C4: Normal annular contour. There is no uncovertebral joint arthropathy. There is no facet joint arthropathy. There is no neural foraminal stenosis. There is no spinal canal stenosis. C4-C5: Minimal disc-osteophyte complex. There is no uncovertebral joint arthropathy. There is mild left and no right facet joint arthropathy. There is no neural foraminal stenosis. There is no spinal canal stenosis. C5-C6: Normal annular contour. There is no uncovertebral joint arthropathy. There is no facet joint arthropathy. There is no neural foraminal stenosis. There is no spinal canal stenosis. C6-C7: Normal annular contour. There is no uncovertebral joint arthropathy. There is no facet joint arthropathy. There is no neural foraminal stenosis. There is no spinal canal stenosis. C7-T1: Normal annular contour. There is no uncovertebral joint arthropathy. There is no facet joint arthropathy. There is no neural foraminal stenosis. There is no spinal canal stenosis. Thoracic Spine: Moderately motion degraded exam. Partial straightening of the normal thoracic kyphosis. Otherwise, normal anatomic alignment. Normal, homogeneous marrow signal throughout. The vertebral body heights are maintained. The intervertebral discs are of normal height and signal. There appears to be central T2 hyperintensity within the spinal cord at the level of T10 without associated enhancement. No demonstrated additional thoracic spinal cord signal abnormalities. The conus medullaris terminates at the level of T12-L1. No abnormal contrast enhancement. No significant abnormalities of the paraspinal musculature. Limited evaluation of the intrathoracic structures without significant abnormalities. The descending thoracic aorta is of normal contour and caliber. AXIAL SPINAL LEVELS: Normal annular contours. There is mild multilevel facet joint arthropathy. There is no neural foraminal stenosis. There is no spinal canal stenosis. MR/MR cervical spine wo/w con IMPRESSION: 1. There appears to be central T2 hyperintensity within the spinal cord at the level of T10. No associated enhancement. This finding is nonspecific but may be seen in the setting of an underlying demyelinating process. 2. 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 No overt spinal canal stenosis or nerve root compression. No demonstrated cervical spinal cord signal abnormalities. No demonstrated abnormal enhancement.
[2023-08-11] MEDS: gadobutroL 7.5 ML VIAL IVPUSH (09:50)
== END 2023-08-11 08:10 | disposition home or self-care (01) ==
LOC: HO.MRI 08:09
PROVIDERS: PCP Family Medicine; Visit Provider Nurse Practitioner Family
DX: R90.82 White matter disease, unspecified (principal); R20.0 Anesthesia of skin; R20.2 Paresthesia of skin; H57.10 Ocular pain, unspecified eye; Z86.19 Personal history of other infectious and parasitic diseases
CPT/HCPCS: 72156; 72157; A9585

== ENCOUNTER 2023-08-23 08:28 | Outpatient (AMB) | payer BC, OTHER, SELFPAY ==
[2023-08-23 08:56] VITALS: BMI 24.5
--- NOTE | 2023-08-23 08:56 | A.OFFVIS_ITS ---
Vital Signs 08/23/23 08:56 Height 5 ft 4 in Weight 143 lb BMI 24.5 Intake Visit Reasons: 8 weeks F/U-CONF Intake Note: Babatunde presents for 8 week follow up. patient had no concerns feeling good. Allergies latex Allergy (Unknown, Verified 08/23/23 08:58) Unknown Medication List - Last Reconciled 08/29/23 by TAURUS Cooper ibuprofen 600 mg PO TID levonorgestrel-ethinyl estrad 0.1-20 mg-mcg (Sronyx) 1 tab PO DAILY naratriptan take 1/2 - 1 tab at onset of headache; if no relief may repeat 1 tab after at least 4 hrs; max = 2 tabs/24 hrs orally PRN; 30 days propranolol 10 mg PO BID 30 days HPI Comments Details: 23-yr-old female presents for f/u visit for f/u left eye pain, h/o episodic left tafial numbness/paresthesias, headaches. Pt denies any significant interval medical changes. Pt reports that she is feeling better. She has made some diet changes- trying to avoid sugar, and foods prone to cause inflammation. Headaches are better. Now able to drive more. She is not as fatigued, able to get through her day better. She had c-spine and T-spine MRI- results pending. Previous work-up: * Recent eye exam- bilateral optic disc pallor- her eye provider referred to neuro-ophthalmology. * Lab results were notable for positive BR[place]: AANA Titer 1:320 HANA Titer 2 1:40 HANA Pattern Nuclear, Homogeneous AANA Pattern 2 A Pt has since had rheumatology consult, f/u lab testing has been WNL. Note pt did have a convulsive syncopal episode following her rheumatology lab testing f/b N/V and fatigue. She has had this happen before w/ blood draws. . * 06/21/23: EEG: This waking EEG is within normal limits * 05/27/23, [place] [facility] [place]. No acute intracranial abnormalities. 2. Redemonstrated nonspecific white matter changes. There appear to be a few small regions of T2 FLAIR hyperintensity in the left periatrial white matter and anterior right frontal lobe are new compared to exam from 2022. No demonstrated associated restricted diffusion in these distributions to suggest active insult. Overall, these changes are nonspecific; however, the distribution may be seen in the setting of inflammatory or demyelinating processes. 3. No MRI abnormalities of the orbits to explain the patient's symptoms. No abnormal enhancement of the orbits. * 12/14/22, Brain MRI w/wo, at [facility], showed nonspecific foci of increased T2 hyperintensity signal in the subcortical and deep white matter of bilateral cerebral hemispheres, but otherwise unremarkable. * 05/11/23, Visual Evoked Potential INTERPRETATION: ?This pattern-reversal visual evoked response (AVTAR) study is abnormal in terms of the absolute latency to the P100 peak at check size 32 only in that it is beyond three standard deviations from the mean for both eyes, but since the absolute latency to the P100 peak at check sizes 16 and 64 for both eyes is within the normal range, the clinical significance of this finding is unclear. ?However, the possibility that there could be a very mild conduction defect in the visual pathways bilaterally, which because of the binocular nature of the findings would make the lesion location (retina, optic nerve, tracts or radiations) not able to be determined, cannot be totally excluded. ?Clinical correlation is therefore recommended. [facility] Medical History (Updated 08/29/23 @ 02:19 by TAURUS Cooper) History of Marina-Schilling virus infection Family History Mother Hyperlipidemia Auto immune neutropenia Arthritis Family/Other Lupus Social History Alcohol intake: current Alcohol intake frequency: holidays/special occasions only Patient Tobacco Use Status: Never used Tobacco Substance Use Type: Marijuana Physical Exam Vital Signs: BMI result Body Mass Index 24.5 Const General: cooperative and no acute distress Orientation/consciousness: patient oriented x3 Resp Effort & Inspection: normal respiratory effort and able to speak in complete sentences Neuro General: patient oriented x3 Cranial nerves: Yes CN's II-XII intact bilaterally Cognition (Neuro): normal cognition Gait exam (Neuro): Normal gait present Motor exam (neuro): 5/5 motor strength present throughout Psych Appearance: grossly normal Mental Status: mental status grossly normal Speech and movement: Normal speech and movement present Affect: normal affect Attitude: cooperative Results Reviewed Results Reviewed: [address] [address] Magnetic Resonance Report Signed Patient: Justine Mcgowan MR#: [id number] : 2000 Acct:[id number] Age/Sex: 23 / F ADM Date: 08/11/23 Loc: HO.MRI Attending Dr: Pat CONDON Ordering Physician: Pat Mcnair Date of Service: 08/11/23 Procedure(s): MR thoracic spine wo/w con Accession Number(s): [id number] cc: Pat Mcnair; Criss Sepulveda MD~ EXAMINATION: MR CERVICAL SPINE WITHOUT AND WITH CONTRAST MR THORACIC SPINE WITHOUT AND WITH CONTRAST CLINICAL INFORMATION: White matter disease. COMPARISON: Brain MRI from 05/27/2023. TECHNIQUE: MRI of the cervical and thoracic spine was obtained using routine sequences without and following the administration of 6 mL of Gadavist intravenous contrast. FINDINGS: Cervical Spine: Straightening of the normal cervical lordosis. Mild degenerative anterolisthesis of C2 on C3. Otherwise, normal anatomic alignment. Mild degenerative disc disease at C2-C3 and from C4-C6. Associated mixed Modic type discogenic and plate changes including mild Modic type I discogenic edema from C2-C4. No additional suspicious marrow edema. The vertebral body heights are largely maintained. No demonstrated overt cervical spinal cord signal abnormalities. No abnormal contrast enhancement. Limited evaluation of the soft tissues of the neck without demonstrated abnormalities. The flow voids of the major cervical vessels are maintained. Normal appearance of the cervicomedullary junction and visualized posterior fossa. SPINAL LEVELS: C2-C3: Minimal disc-osteophyte complex. There is no uncovertebral joint arthropathy. There is mild left and no right facet joint arthropathy. There is no neural foraminal stenosis. There is no spinal canal stenosis. C3-C4: Normal annular contour. There is no uncovertebral joint arthropathy. There is no facet joint arthropathy. There is no neural foraminal stenosis. There is no spinal canal stenosis. C4-C5: Minimal disc-osteophyte complex. There is no uncovertebral joint arthropathy. There is mild left and no right facet joint arthropathy. There is no neural foraminal stenosis. There is no spinal canal stenosis. C5-C6: Normal annular contour. There is no uncovertebral joint arthropathy. There is no facet joint arthropathy. There is no neural foraminal stenosis. There is no spinal canal stenosis. C6-C7: Normal annular contour. There is no uncovertebral joint arthropathy. There is no facet joint arthropathy. There is no neural foraminal stenosis. There is no spinal canal stenosis. C7-T1: Normal annular contour. There is no uncovertebral joint arthropathy. There is no facet joint arthropathy. There is no neural foraminal stenosis. There is no spinal canal stenosis. Thoracic Spine: Moderately motion degraded exam. Partial straightening of the normal thoracic kyphosis. Otherwise, normal anatomic alignment. Normal, homogeneous marrow signal throughout. The vertebral body heights are maintained. The intervertebral discs are of normal height and signal. There appears to be central T2 hyperintensity within the spinal cord at the level of T10 without associated enhancement. No demonstrated additional thoracic spinal cord signal abnormalities. The conus medullaris terminates at the level of T12-L1. No abnormal contrast enhancement. No significant abnormalities of the paraspinal musculature. Limited evaluation of the intrathoracic structures without significant abnormalities. The descending thoracic aorta is of normal contour and caliber. AXIAL SPINAL LEVELS: Normal annular contours. There is mild multilevel facet joint arthropathy. There is no neural foraminal stenosis. There is no spinal canal stenosis. MR/MR thoracic spine wo/w con IMPRESSION: 1. There appears to be central T2 hyperintensity within the spinal cord at the level of T10. No associated enhancement. This finding is nonspecific but may be seen in the setting of an underlying demyelinating process. 2. 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 No overt spinal canal stenosis or nerve root compression. No demonstrated cervical spinal cord signal abnormalities. No demonstrated abnormal enhancement. Assessment & Plan Assessment & Plan (1) Multiple sclerosis: Comment: probable. Lower suspicion for NMOSD. Code(s): G35 - Multiple sclerosis Category: Medical (2) Numbness and tingling of left side of face: Comment: Left V2-V3 numbness and tingling (from Oct -Nov 2022) resolved after decadron tx Code(s): R20.0 - Anesthesia of skin; R20.2 - Paresthesia of skin Category: Medical (3) White matter abnormality on MRI of brain: Code(s): R90.82 - White matter disease, unspecified Category: Medical (4) Migraine without aura: Code(s): G43.009 - Migraine without aura, not intractable, without status migrainosus Category: Medical (5) Convulsive syncope: Code(s): R55 - Syncope and collapse Category: Medical (6) History of Marina-Schilling virus infection: Code(s): Z86.19 - Personal history of other infectious and parasitic diseases Category: Medical Plan Pt is feeling much better today. Reviewed clinical history and previous work-up. Although non-specific, abnormal brain MRI w/ progression of intracerebral white matter changes, eye exam, and VEP studies, do raise suspicion for a central inflammatory or demyelinating process. Review C-spine and T-spine MRI w/wo reports when available. Future considerations: LP for CSF studies- pt was previously hesitant but is more open to it today. She is still worried about risk for passing out during LP.- Will hold until MRI reports available- if we order LP, can provide pre-LP anxioltyic. Anti-aquaporin 4 AB- will order at the same time as LP. XR l-spine for back pain- not completed yet, however pt is feeling better. ? For migraine headache: Headaches improved, will monitor. Propranolol 10mg bid for migraine and anxiety Naratriptan prn. Previous acute migraine tx trials- Sumatriptan- not tolerated. Addendum- Rec'd and reviewed c-spine and t-spine MRI w/wo report and images: notable for central T2 hyperintensity within the spinal cord at the level of T10. Call placed to pt and her mother, reviewed MRI findings. Discussed that the presence of a central T2 hyperintensity at the level of T10, does further raise suspicion for an inflammatory/demyelinating process, such as MS. I will refer pt to the [facility], for further evaluation and tx as pt likely would benefit from more intensive tx plan than our office can offer. Will defer ordering LP/CSF studies and anti-aquapoirn 4 AB studies to the [facility], again as pt is very needle phobic w/ a h/o convulsive syncope provoked by blood draws. Pt verbalizes understanding and is in agreement with plan. Coding Level of Care Code Est Pt Level 4 (54742) Diagnoses Multiple sclerosis G35 Numbness and tingling of left side of face R20.0; R20.2 White matter abnormality on MRI of brain R90.82 Migraine without aura G43.009 Convulsive syncope R55 History of Marina-Schilling virus infection Z86.19
== END 2023-08-23 09:40 | disposition home or self-care (01) ==
PROVIDERS: PCP Family Medicine; Visit Provider Nurse Practitioner Family
DX: G35 Multiple sclerosis (principal); R20.0 Anesthesia of skin; R20.2 Paresthesia of skin; R90.82 White matter disease, unspecified; G43.009 Migraine without aura, not intractable, without status migrainosus; R55 Syncope and collapse; Z86.19 Personal history of other infectious and parasitic diseases
CPT/HCPCS: 99214

== ENCOUNTER → 2023-08-23 08:28 | Outpatient (BNVA) | payer OTHER, BC, SELFPAY | PROVIDERS: PCP Family Medicine; Visit Provider Nurse Practitioner Family ==